=== PATIENT | male | born 1950 | race Caucasian/White ===

== ENCOUNTER 2021-08-29 07:59 | Emergency (ER) | payer MEDICARE, MEDICAID ==
[~2021-08-29] VITALS: Ht 177.8 cm; Wt 92.3 kg
[~2021-08-29 07:59] MED LIST: AMLO10TA4 PO; ASPI81TA52 PO; FURO-150 PO; HYDR12.55 PO; LISI20TA28 PO; METO100T7 PO; POTA-197 PO; PRAV40TA3 PO; TAMS0.4C32 PO
[2021-08-29 08:13] VITALS: BP 162/58
[2021-08-29 09:04] LABS: BASOPHILS % (AUTO) 0.7 % (0-1); EOSINOPHILS # (AUTO) 0.2 X10'3 (0-0.9); EOSINOPHILS % (AUTO) 4.7 % (0-6); HEMATOCRIT 29.7 % (42.0-52.0); HEMOGLOBIN 9.9 g/dl (14.0-17.9); LYMPHOCYTES # (AUTO) 1.2 X10'3 (1.1-4.8); LYMPHOCYTES % (AUTO) 25.2 % (21-51); MEAN CORPUSCULAR HEMOGLOBIN 30.5 PG (27.0-31.0); MEAN CORPUSCULAR HGB CONC 33.5 g/dL (33.0-36.5); MEAN CORPUSCULAR VOLUME 91.3 FL (78-98); MEAN PLATELET VOLUME 8.6 FL (7.4-10.4); MONOCYTES # (AUTO) 0.4 X10'3 (0-0.9); MONOCYTES % (AUTO) 9.4 % (2-12); NEUTROPHILS # (AUTO) 2.9 X10'3 (1.8-7.7); PLATELET COUNT 145 X10'3 (140-440); RED BLOOD COUNT 3.25 X10'6 (4.70-6.10); RED CELL DISTRIBUTION WIDTH 17.5 % (11.5-14.5); WHITE BLOOD COUNT 4.7 X10'3 (4.5-11.0)
[2021-08-29 09:26] LABS: ALANINE AMINOTRANSFERASE 24 U/L (12-78); ALBUMIN 2.8 G/DL (3.4-5.0); ALBUMIN/GLOBULIN RATIO 0.7 (1.1-1.5); ALKALINE PHOSPHATASE 105 IU/L (46-116); ANION GAP 9 (8-16); ASPARTATE AMINO TRANSFERASE 30 U/L (10-37); BILIRUBIN,TOTAL 0.4 MG/DL (0.1-1.0); BLOOD UREA NITROGEN 56 MG/DL (7-18); BUN/CREATININE RATIO 11.5 (5.4-32.0); CALCIUM 8.6 MG/DL (8.5-10.1); CHLORIDE 100 MMOL/L (99-107); CREATININE 4.85 MG/DL (0.60-1.10); GLUCOSE 198 MG/DL (70-104); LIPASE 273 U/L (73-393); POTASSIUM 4.2 MMOL/L (3.5-5.1); SODIUM 138 MMOL/L (135-145); TOTAL CARBON DIOXIDE 28.9 MMOL/L (24-32); TOTAL PROTEIN 6.7 G/DL (6.4-8.2); eGFR 12 ML/MIN
--- NOTE | 2021-08-29 09:37 | NUR ---
dr. lagos performed hemocult, negative. pt tolerated well.
[2021-08-29 09:58] LABS: OCCULT BLOOD STOOL NEGATIVE (Neg)
== END 2021-08-29 12:15 | disposition home or self-care (01) ==
LOC: ER 08:01
DX: D64.9 Anemia, unspecified (principal); Z79.02 Long term (current) use of antithrombotics/antiplatelets; L89.309 Pressure ulcer of unspecified buttock, unspecified stage; I48.91 Unspecified atrial fibrillation; I25.10 Atherosclerotic heart disease of native coronary artery without angina pectoris; I10 Essential (primary) hypertension; E11.9 Type 2 diabetes mellitus without complications; Z95.5 Presence of coronary angioplasty implant and graft; Z88.0 Allergy status to penicillin; Z88.2 Allergy status to sulfonamides; Z79.82 Long term (current) use of aspirin; Z79.899 Other long term (current) drug therapy
CPT/HCPCS: 36415; 80053; 82272; 83690; 85025; 86885; 86900; 86901; 99284

== ENCOUNTER 2021-09-24 05:57 | Day surgery (SDC) | payer MEDICARE, MEDICAID ==
[~2021-09-24] VITALS: Ht 177.8 cm; Wt 92.7 kg
[2021-09-24] MEDS ORDERED: normal saline 1000ml 1,000 ML IV PRN (06:35)
[2021-09-24 06:40] VITALS: BP 141/44
[2021-09-24] MEDS ORDERED: AMIO100T4 PO (06:59)
[2021-09-24] MEDS ORDERED: CARV3.12 PO (07:00)
[2021-09-24] MEDS ORDERED: ATOR40TA PO (07:00)
[2021-09-24] MEDS ORDERED: FENO160T9 PO (07:02)
[2021-09-24] MEDS ORDERED: HYDR-4069 PO (07:02)
[2021-09-24] MEDS ORDERED: INSU100V9 SQ ×2 (07:03→07:13)
[2021-09-24] MEDS ORDERED: SEVE800T8 PO (07:05)
[2021-09-24] MEDS ORDERED: FINA5TAB11 PO (07:05)
[2021-09-24] MEDS ORDERED: FLO0.4C PO (07:06)
[2021-09-24] MEDS ORDERED: APIX5TAB3 PO (07:07)
[2021-09-24] MEDS ORDERED: HYDR28CR14 TOP (07:10)
[2021-09-24] MEDS ORDERED: CLOP75TA15 PO (07:10)
[2021-09-24] MEDS ORDERED: LANTUS SQ (07:14)
[2021-09-24 07:18] LABS: BASOPHILS % (AUTO) 0.5 % (0-1); EOSINOPHILS # (AUTO) 0.3 X10'3 (0-0.9); EOSINOPHILS % (AUTO) 5.6 % (0-6); HEMATOCRIT 34.2 % (42.0-52.0); HEMOGLOBIN 11.3 g/dl (14.0-17.9); LYMPHOCYTES # (AUTO) 1.3 X10'3 (1.1-4.8); LYMPHOCYTES % (AUTO) 24.1 % (21-51); MEAN CORPUSCULAR HEMOGLOBIN 30.9 PG (27.0-31.0); MEAN CORPUSCULAR VOLUME 93.9 FL (78-98); MEAN PLATELET VOLUME 8.1 FL (7.4-10.4); MONOCYTES # (AUTO) 0.5 X10'3 (0-0.9); NEUTROPHILS # (AUTO) 3.3 X10'3 (1.8-7.7); NEUTROPHILS % (AUTO) 60.8 % (42-75); PLATELET COUNT 166 X10'3 (140-440); RED BLOOD COUNT 3.65 X10'6 (4.70-6.10); RED CELL DISTRIBUTION WIDTH 18.6 % (11.5-14.5); WHITE BLOOD COUNT 5.4 X10'3 (4.5-11.0)
[2021-09-24] MEDS ORDERED: INSU100V43 (07:18)
[2021-09-24 08:03] LABS: ALBUMIN 3.1 G/DL (3.4-5.0); ANION GAP 11 (8-16); BLOOD UREA NITROGEN 87 MG/DL (7-18); BUN/CREATININE RATIO 12.4 (5.4-32.0); CALCIUM 8.8 MG/DL (8.5-10.1); CHLORIDE 99 MMOL/L (99-107); CREATININE 7.04 MG/DL (0.60-1.10); GLUCOSE 150 MG/DL (70-104); SODIUM 136 MMOL/L (135-145); eGFR 8 ML/MIN
[2021-09-24] MEDS ORDERED: midazolam 1 mg/ML 2ml injection ONE (08:38)
[2021-09-24] MEDS ORDERED: heparin 1,000 UNITS/NS 500ml 500 ML ONE (08:38)
[2021-09-24] MEDS ORDERED: fentaNYL/PF 50MCG/1 ML 2ML syringe ONE (08:38)
[2021-09-24] MEDS ORDERED: LIDOcaine 1% (10mg/ml) 2ml vial ONE (08:39)
[2021-09-24] MEDS ORDERED: iohexol 300mg/ml 100ml inj. ONE (08:39)
[2021-09-24 10:35] VITALS: BP 134/59
[2021-09-24 10:51] VITALS: BP 152/54
[2021-09-24 11:06] VITALS: BP 140/58
[2021-09-24 11:16] VITALS: BP 138/50
== END 2021-09-24 11:55 | disposition home or self-care (01) ==
LOC: SSTAY O 05:57
PROVIDERS: ATTEND Preventive Medicine Aerospace Medicine
DX: T82.858A Stenosis of other vascular prosthetic devices, implants and grafts, initial encounter (principal); E11.22 Type 2 diabetes mellitus with diabetic chronic kidney disease; I13.2 Hypertensive heart and chronic kidney disease with heart failure and with stage 5 chronic kidney disease, or end stage renal disease; N18.6 End stage renal disease; I50.9 Heart failure, unspecified; Z88.0 Allergy status to penicillin; Z88.2 Allergy status to sulfonamides; Z95.1 Presence of aortocoronary bypass graft; Z79.4 Long term (current) use of insulin; Z79.899 Other long term (current) drug therapy; Y83.2 Surgical operation with anastomosis, bypass or graft as the cause of abnormal reaction of the patient, or of later complication, without mention of misadventure at the time of the procedure; Y92.89 Other specified places as the place of occurrence of the external cause
CPT/HCPCS: 36415; 36901; 80048; 82948; 85025; 85610; 99152; 99153; C1725; C1769; C1894; J1644; J2250; J3010; J3490; Q9967